=== PATIENT | male | born 1965 | race Caucasian/White ===

== ENCOUNTER 2020-10-23 09:08 | Outpatient (REF) | payer MEDICAID, SELFPAY ==
[2020-10-23 09:50] LABS: MANUAL DIFF FLAG NO
[2020-10-23 10:07] LABS: Basophils Percent Auto 0.5 % (0-2); Eosinophils Absolute Auto 0.1 X10*3/uL (0.0-0.4); Eosinophils Percent Auto 1.8 % (0-4); Hematocrit 46.5 % (42-52); Imm Gran Abs Auto 0.03 X10*3/uL (0.00-0.03); Imm Gran Pct Auto 0.5 % (0.0-0.4); Lymphocytes Absolute Auto 1.9 X10*3/uL (1.2-4.9); Lymphocytes Percent Auto 31.4 % (20-40); Mean Corpuscular HGB Conc 32.3 g/dl (31.0-36.0); Mean Corpuscular Hemoglobin 30.1 pg (27.0-33.0); Mean Corpuscular Volume 93.2 fL (80-98); Mean Platelet Volume 9.9 fL (9.4-12.4); Monocytes Absolute Auto 0.6 X10*3/uL (0.1-1.2); Monocytes Percent Auto 9.9 % (2-11); Neutrophils Absolute Auto 3.4 X10*3/uL (2.0-8.3); Neutrophils Percent Auto 55.9 % (45-73); Platelet Count 199 X10*3/uL (160-400); Red Blood Count 4.99 X10*6/uL (4.60-5.80); Red Cell Distribution Width 11.9 % (11.0-16.0); White Blood Count 6.1 X10*3/uL (4.8-10.8)
[2020-10-23 10:17] LABS: Alanine Aminotransferase 22 U/L (0-40); Albumin Level 4.3 g/dL (3.5-5.0); Alkaline Phosphatase 82 U/L (39-117); Anion Gap 10 (12-20); Aspartate Amino Transferase 17 U/L (5-37); Bilirubin Total 0.5 mg/dL (0.0-1.0); Blood Urea Nitrogen 13 mg/dL (9-16); Calcium 9.5 mg/dL (8.4-10.2); Carbon Dioxide 27 mmol/L (22-29); Chloride 108 mmol/L (96-108); Cholesterol 159 mg/dL; Estimated Glomerular Filt Rate > 60; Glucose Random 101 mg/dL (60-115); HDL Cholesterol 35 mg/dL; LDL Cholesterol Calculated 96 mg/dl; Potassium 4.1 mmol/L (3.3-5.1); Sodium 141 mmol/L (135-145); Total Protein 6.7 g/dL (6.5-8.0); Triglycerides 141 mg/dL
[2020-10-23 10:47] LABS: Glucose Urine UA NEG (NEG); Leukocyte Esterase Urine NEG (NEG); Nitrite Urine NEG (NEG); PH 5.5 (5.0-8.0); Specific Gravity - Urine >= 1.030 (1.005-1.025); Urine Blood NEG (NEG); Urine Ketones NEG (NEG); Urine Protein TRACE MG/DL (NEG-TRACE)
[2020-10-23 10:51] LABS: Appearance Urine HAZY; Color Urine YELLOW
[2020-10-23 11:04] LABS: Prostate Specific Antigen 1.62 ng/mL (<0.05-4.0)
== END 2020-10-23 09:09 | disposition home or self-care (01) ==
LOC: HO.LAB 09:08
PROVIDERS: PCP Internal Medicine; Visit Provider Internal Medicine
DX: I10 Essential (primary) hypertension (principal); E78.00 Pure hypercholesterolemia, unspecified; I25.10 Atherosclerotic heart disease of native coronary artery without angina pectoris; R35.1 Nocturia; Z12.5 Encounter for screening for malignant neoplasm of prostate
CPT/HCPCS: 36415; 80053; 80061; 81003; 84153; 85025

== ENCOUNTER 2021-10-09 09:43 | Outpatient (REF) | payer MEDICAID, SELFPAY ==
--- NOTE | ~2021-10-09 | XR_ITS ---
EXAMINATION: XR KNEE, LEFT CLINICAL INFORMATION: Left knee pain. Rule out ovary. COMPARISON: None TECHNIQUE: 4 views of the left knee. FINDINGS: There is severe degenerative varus deformity of left knee with severe loss of medial and moderate patellofemoral and lateral compartment joint space. There is moderate periarticular spurring lateral compartment. No acute fracture or dislocation seen. No lytic process. No abnormal joint effusion. XR/XR knee LT 4V IMPRESSION: Severe degenerative arthritic changes medial compartment and moderate arthritic changes patellofemoral compartment. There is genu varum deformity of the knee. No visible acute fracture or dislocation seen.
[2021-10-09 09:58] LABS: MANUAL DIFF FLAG NO
[2021-10-09 10:12] LABS: Basophils Percent Auto 0.3 % (0-2); Eosinophils Absolute Auto 0.1 X10*3/uL (0.0-0.4); Hematocrit 44.6 % (42.0-52.0); Hemoglobin 14.5 g/dl (14.0-18.0); Imm Gran Abs Auto 0.03 X10*3/uL (0.00-0.03); Imm Gran Pct Auto 0.5 % (0.0-0.4); Lymphocytes Absolute Auto 2.1 X10*3/uL (1.2-4.9); Lymphocytes Percent Auto 36.1 % (20-40); Mean Corpuscular HGB Conc 32.5 g/dl (31.0-36.0); Mean Corpuscular Hemoglobin 29.3 pg (27.0-33.0); Mean Corpuscular Volume 90.1 fL (80.0-98.0); Monocytes Absolute Auto 0.5 X10*3/uL (0.1-1.2); Monocytes Percent Auto 8.7 % (2-11); Neutrophils Absolute Auto 3.1 x10*3/uL (2.0-8.3); Neutrophils Percent Auto 53.4 % (45-73); Platelet Count 214 X10*3/uL (160-400); Red Blood Count 4.95 X10*6/uL (4.60-5.80); Red Cell Distribution Width 11.9 % (11.0-16.0); White Blood Count 5.7 X10*3/uL (4.8-10.8)
[2021-10-09 10:41] LABS: Alanine Aminotransferase 23 U/L (0-40); Albumin Level 4.1 g/dL (3.5-5.0); Alkaline Phosphatase 73 U/L (39-117); Anion Gap 11 (12-20); Aspartate Amino Transferase 16 U/L (5-37); Bilirubin Total 0.9 mg/dL (0.0-1.0); Blood Urea Nitrogen 13 mg/dL (9-16); Calcium 9.4 mg/dL (8.4-10.2); Carbon Dioxide 26 mmol/L (22-29); Chloride 108 mmol/L (96-108); Cholesterol 148 mg/dL; Estimated Glomerular Filt Rate > 60; Glucose Fasting 94 mg/dL (60-99); HDL Cholesterol 32 mg/dL; LDL Cholesterol Calculated 98 mg/dl; Potassium 4.1 mmol/L (3.3-5.1); Sodium 141 mmol/L (135-145); Total Protein 6.7 g/dL (6.5-8.0); Triglycerides 93 mg/dL
[2021-10-09 11:06] LABS: Prostate Specific Antigen 1.33 ng/mL (<0.05-4.0)
== END 2021-10-09 09:44 | disposition home or self-care (01) ==
LOC: HO.XRAY 09:43
PROVIDERS: PCP Internal Medicine; Visit Provider Internal Medicine
DX: Z12.5 Encounter for screening for malignant neoplasm of prostate (principal); M25.562 Pain in left knee; E78.00 Pure hypercholesterolemia, unspecified; I25.10 Atherosclerotic heart disease of native coronary artery without angina pectoris; I10 Essential (primary) hypertension
CPT/HCPCS: 36415; 73564; 80053; 80061; 84153; 85025

== ENCOUNTER 2024-05-31 10:48 | Outpatient (REF) | payer MEDICAID, SELFPAY ==
[2024-05-31 11:33] LABS: MANUAL DIFF FLAG NO
[2024-05-31 12:08] LABS: Basophils Absolute Auto 0.1 X10*3/uL (0.0-0.2); Basophils Percent Auto 0.9 % (0-2); Eosinophils Absolute Auto 0.1 X10*3/uL (0.0-0.4); Eosinophils Percent Auto 1.7 % (0-4); Hematocrit 49.1 % (42.0-52.0); Hemoglobin 16.4 g/dl (14.0-18.0); Imm Gran Abs Auto 0.02 X10*3/uL (0.00-0.03); Imm Gran Pct Auto 0.3 % (0.0-0.4); Lymphocytes Absolute Auto 2.1 X10*3/uL (1.2-4.9); Mean Corpuscular HGB Conc 33.4 g/dl (31.0-36.0); Mean Corpuscular Hemoglobin 29.8 pg (27.0-33.0); Mean Corpuscular Volume 89.3 fL (80.0-98.0); Mean Platelet Volume 9.2 fL (9.4-12.4); Monocytes Absolute Auto 0.7 X10*3/uL (0.1-1.2); Monocytes Percent Auto 10.1 % (2-11); Neutrophils Absolute Auto 3.5 x10*3/uL (2.0-8.3); Platelet Count 228 X10*3/uL (160-400); Red Cell Distribution Width 11.9 % (11.0-16.0); White Blood Count 6.5 X10*3/uL (4.8-10.8)
[2024-05-31 12:21] LABS: Appearance Urine Clear; Color Urine Yellow; Glucose Urine UA Negative (Negative); Leukocyte Esterase Urine Negative (Negative); Nitrite Urine Negative (Negative); Urine Blood Negative (Negative); Urine Ketones Negative (Negative); Urine Protein Negative (Neg-Trace)
[2024-05-31 12:52] LABS: Albumin Level 4.3 g/dL (3.5-5.0); Alkaline Phosphatase 76 U/L (39-117); Anion Gap 10 (12-20); Aspartate Amino Transferase 26 U/L (5-37); Bilirubin Total 0.6 mg/dL (0.0-1.0); Blood Urea Nitrogen 13 mg/dL (9-16); Calcium 9.3 mg/dL (8.4-10.2); Carbon Dioxide 25 mmol/L (22-29); Chloride 111 mmol/L (96-108); Cholesterol 162 mg/dL (<200); Estimated Glomerular Filt Rate > 60; Glucose Fasting 106 mg/dL (60-99); HDL Cholesterol 32 mg/dL (>40); LDL Cholesterol Calculated 99 mg/dL (<100); Potassium 4.4 mmol/L (3.3-5.1); Sodium 142 mmol/L (135-145); Total Protein 7.7 g/dL (6.5-8.0); Triglycerides 159 mg/dL (<150)
[2024-05-31 12:53] LABS: Prostate Specific Antigen 1.59 ng/mL (<0.05-4.0)
[2024-05-31 13:12] LABS: Alanine Aminotransferase 41 U/L (0-40)
[2024-05-31 13:18] LABS: Carcinoembryonic Antigen < 1.73 ng/mL
== END 2024-05-31 10:49 | disposition home or self-care (01) ==
LOC: HO.LAB 10:48
PROVIDERS: PCP Internal Medicine; Visit Provider Internal Medicine
DX: I10 Essential (primary) hypertension (principal); E78.00 Pure hypercholesterolemia, unspecified
CPT/HCPCS: 36415; 80053; 80061; 81003; 82378; 84153; 85025

== ENCOUNTER 2024-10-01 08:47 | Outpatient (AMB) | payer MEDICAID, SELFPAY ==
--- NOTE | 2024-10-01 08:51 | A.OFFVIS_ITS ---
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 Not much information is available. It seems that there is a history of hypertension, dyslipidemia and possibly coronary disease. Apparently, he was doing drugs in the past including cocaine. However, he states he has not done that in many decades. He believes he probably had heart attack related to drugs but again he cannot give any clear information. Within limits of his activity, no clear-cut symptoms like angina. It seems to be on medications for hypertension, dyslipidemia. [facility] Medical History (Updated 10/01/24 @ 09:14 by Kvng Andrews MD) Hyperlipidemia, unspecified Cocaine abuse in remission Primary hypertension Family History (Updated 10/01/24 @ 09:13 by Kvng Andrews MD) Mother Colon cancer Father Asthma Social History (Updated 10/01/24 @ 08:56 by [facility]) Household Members: Unknown / Unable to assess Alcohol intake: never Patient Tobacco Use Status: Never used Tobacco Review of Systems Const Denies chills, Denies fatigue, Denies fever(s), Denies frequent falls, Denies weakness, Denies weight gain and Denies weight loss ENT Denies dizziness Card Denies chest pain, Denies leg edema, Denies lightheadedness, Denies palpitations, Denies dyspnea, Denies dyspnea on exertion and Denies orthopnea Resp Denies cough, Denies dyspnea and Denies dyspnea on exertion GI Denies bloating and Denies change in bowel habits Musc Denies muscle weakness, Denies numbness and Denies tingling Neuro Denies dizziness, Denies frequent falls, Denies numbness, Denies tingling and Denies weakness Endo Denies fatigue and Denies palpitations Physical Exam Vital Signs: Last Vital Signs Pulse 79 10/01/24 08:53 BP 120/80 10/01/24 08:53 BMI result Body Mass Index 37.0 Const General: comfortable and no acute distress Orientation/consciousness: patient oriented x3 HEENT Other: Unremarkable Head: Yes normal to inspection Neck Neck: Yes normal visual inspection Chest Chest palpation & inspection: normal inspection of the chest Resp Auscultation: clear to auscultation bilaterally Cardio Palpation: normal PMI Heart sounds: S1 normal heart sound present, S2 normal heart sound present, no gallops, no murmurs and no rubs GI Palpation (GI): Soft to palpation Back/Spine/Pelvis Other: unremarkable Skin General skin exam: no rashes or lesions noted Neuro General: patient oriented x3 Extrem General: Yes normal to inspection Psych Mental Status: mental status grossly normal Office Procedures EKG Details: EKG with underlying sinus rhythm at 79/Min; cannot exclude old septal infarct; l ateral T inversions. Normal LA and corrected QT. No prior EKG for comparison. [id number], Complete Assessment & Plan Assessment & Plan (1) Abnormal EKG: Code(s): R94.31 - Abnormal electrocardiogram [ECG] [EKG] Category: Medical (2) Primary hypertension: Code(s): I10 - Essential (primary) hypertension Category: Medical (3) Hyperlipidemia, unspecified: Code(s): E78.5 - Hyperlipidemia, unspecified Category: Medical (4) Cocaine abuse in remission: Code(s): F14.11 - Cocaine abuse, in remission Category: Medical Plan Patient with many risk factors, no overt symptoms, abnormal EKG. Unclear coronary status. Obtain echocardiogram and stress test for further evaluation. Plan discussed with the patient he agrees. Continue current medications but I am not entirely clear why he is on dual antiplatelet therapy. Can await the above testing and then plan. Follow-up after the above. Discussion Notes During the visit, I discussed with the patient the importance of evaluating his current cardiac function considering the previous myocardial infarction and historical cocaine use. I recommended an echocardiogram and treadmill stress test to assess heart performance and potential ischemic changes. I explained the tests' benefits for monitoring cardiac health and risks like potential discomfort. The patient agreed and gave consent for the procedures. I emphasized maintaining medication adherence for hypertension and cholesterol. We reviewed anticipated results and agreed on discussing further steps once test outcomes are available. Patient was informed and verbally consented to the use of an ambient scribe for clinic note documentation during this visit. Orders: Orders CA echo transthoracic complete Today I25.10 - Atherosclerotic heart disease of [place] coronary artery without angina pectoris, R94.31 - Abnormal electrocar diogram [ECG] [EKG] CA stress test Today R07.2 - Precordial pain, R94.31 - Abnormal electrocardiogram [ECG] [EKG] NM cardiolite stress test Today R07.2 - Precordial pain, R94.31 - Abnormal electrocardiogram [ECG] [EKG] Patient Instructions: - Undergo the scheduled echocardiogram and treadmill stress test as discussed. - Continue taking your cholesterol and blood pressure medications as prescribed. - Maintain your current exercise routine but report any chest pain, pressure, or other concerning symptoms immediately. - Follow up after the tests to discuss results and any necessary changes in your treatment plan. - Call us if you experience any new or worsening symptoms. Coding Level of Care Code New Pt Level 4 (03324) Complex EM visit Add On G2211 Diagnoses Abnormal EKG R94.31 Primary hypertension I10 Hyperlipidemia, unspecified E78.5 Cocaine abuse in remission F14.11 CPT Codes EKG - CPT: 85121-[id number], Complete ([id number])
[2024-10-01 08:53] VITALS: BP 120/80; PULSE 79; BMI 37.0
--- OUTSIDE RECORDS SUMMARY | 2024-10-01 08:54 | XMS_ITS | Patient Health Record ---
Author Organization [facility] Address [address], [place] [id number] Care Team Providers Care Channeler Outsole Name Role Phone [facility], h Primary Care Provid er Unavailable [facility], [facility] Unavailable [phone] Reason For Referral No Information Problems Problem Type SNOMED Code ICD Code Onset Dates Problem Status W/U Status Risk Notes Problem Unsheltered homelessness ([id number] ) Unsheltered homelessness (Z59.02) Active confirmed Plan Of Treatment No Information Insurance Providers Payer Name Payer Address Payer Phone Subscriber Number Group Number Insured Name Patient Relationship to Insured Coverage Start Date Coverage End Date [place] Medicaid PCC [address] [place], [place] [id number] Torsten Dupree Self - patient is the insured 2
--- OUTSIDE RECORDS SUMMARY | 2024-10-01 08:54 | XMS_ITS | Clinical Summary ---
Author Organization [facility] Address [address] [address] [place] [address] Care Team Providers Care Rn Enterostomal Name Role Phone Unavailable Primary Care Provider Unavailabl e Encounters Date Type Department Care Team Description 09/10/2024 Population Health Risk Score [facility] (C3) Department [address] [facility] [address] [place] [address] Provider, Population Health Generic from Last 3 Months Social History Tobacco Use Types Packs/Day Years Used Date Smoking Tobacco: Never Assessed Sex and Gender Information Value Date Recorded Sex Assigned at Not on file Legal Sex Male 12:33 PM EDT Gender Identity Not on file Sexual Orientation Not on file Plan of Treatment Health Maintenance Due Date Last Done Comments CT Colonography 1967 Colonoscopy 1967 Colorectal Cancer Screening 1967 Depression Screening 1967 FIT DNA/Cologuard 1967 FIT 1967 FOBT 1967 HIV Screening 1967 Lipid Panel 1967 SDOH Screening 1967 Sigmoidoscopy 1967 Alcohol/Substance Use Screening 1979 Tobacco Screening 1979 Hepatitis C Screening 1985 DTaP/Tdap/Td Vaccines (1 - Tdap) 1986 Hepatitis B Vaccines (1 of 3 - 19+ 3-dose series) 1986 Pneumococcal Vaccine: 50+ Ye ars (1 of 1 - PCV) 2017 Zoster Vaccines (1 of 2) 2017 COVID-19 Vaccine (2023-2 5 season) 2024 Influenza Vaccine (#1) 2024 RSV Patients and Pa tients Aged 60 years or older (1 - 1-dose 75+ series) 2042 HIB Vaccines Aged Out No longer eligi ble based on patient's age to complete this topic HPV Vaccines Aged Out No longer eligi ble based on patient's age to complete this topic Hepatitis A Vaccines Aged Out No long er eligible based on patient's age to complete this topic IPV Vaccines Aged Out No longer eligi ble based on patient's age to complete this topic Meningococcal B Vaccine Aged Out No l onger eligible based on patient's age to complete this topic Meningococcal Vaccine Aged Out No sana jin eligible based on patient's age to complete this topic RSV under 20 months Aged Out No longe r eligible based on patient's age to complete this topic Rotavirus Vaccines Aged Out No longer eligible based on patient's age to complete this topic
== END 2024-10-01 09:18 | disposition home or self-care (01) ==
LOC: HO.HCS 08:48
PROVIDERS: PCP Internal Medicine; Visit Provider Internal Medicine
DX: R94.31 Abnormal electrocardiogram [ECG] [EKG] (principal); I10 Essential (primary) hypertension; E78.5 Hyperlipidemia, unspecified; F14.11 Cocaine abuse, in remission
CPT/HCPCS: 93010; 99204

== ENCOUNTER → 2024-10-01 08:47 | Outpatient (BNVA) | payer MEDICAID, SELFPAY | PROVIDERS: PCP Internal Medicine; Visit Provider Internal Medicine | DX: I10 Essential (primary) hypertension (principal); E78.5 Hyperlipidemia, unspecified; F14.11 Cocaine abuse, in remission | CPT/HCPCS: 93005; 99202 ==

== ENCOUNTER → 2024-11-30 12:47 | Outpatient (REF) | payer OTHER, SELFPAY ==
--- OUTSIDE RECORDS SUMMARY | 2024-11-30 12:49 | XMS_ITS | Patient Health Record ---
Author Organization [facility] Address [address] [place], [place] [id number] Care Team Providers Care Mapping Specialist Name Role Phone [facility], h Primary Care Provid er Unavailable [facility], [facility] Unavailable [phone] Reason For Referral No Information Problems Problem Type SNOMED Code ICD Code Onset Dates Problem Status W/U Status Risk Notes Problem Unsheltered homelessness ([id number] ) Unsheltered homelessness (Z59.02) Active confirmed Plan Of Treatment No Information Insurance Providers Payer Name Payer Address Payer Phone Subscriber Number Group Number Insured Name Patient Relationship to Insured Coverage Start Date Coverage End Date [place] Medicaid PCC [address] [place], [place] [id number] Torsten Dupree Self - patient is the insured 2
--- OUTSIDE RECORDS SUMMARY | 2024-11-30 12:49 | XMS_ITS | Clinical Summary ---
Author Organization [facility] Address [address] [place] [address] Phone Care Team Providers Care Insurance And Benefits Clerk Name Role Phone Roman Gerber MD Primary Care Provider Allergies No known active allergies Medications aspirin 325 MG tablet Take 325 mg by mouth daily. Active ibuprofen (ADVIL,MOTRIN) 600 MG tablet Take 1 tablet (600 mg total) by mouth every 6 (six) hours as needed for pain (specific location in comments). 28 tablet 12/06/2022 Active Active Problems No known active problems Social History Tobacco Use Types Packs/Day Years Used Date Smoking Tobacco: Never Smokeless Tobacco: Never Tobacco Cessation:Counseling Given: Not Answered Alcohol Use Standard Drinks/Week Comments Yes 0 (1 standard drink = 0.6 oz pur e alcohol) Education Answer Date Recorded Are you interested in more education? Not on rosalee e 12/06/2022 Are you concerned about learning? Not on file 12/06/2022 No 12/06/2022 No 12/06/2022 Digital Access Answer Date Recorded No 12/06/2022 No 12/06/2022 Reliable internet access at home? Not on file 12/06/2022 Device with a working camera? Not on file Sex and Gender Information Value Date Recorded Sex Assigned at Not on file Legal Sex Male 10:11 AM EDT Gender Identity Not on file Sexual Orientation Not on file Last Filed Vital Signs Vital Sign Reading Time Taken Comments Blood Pressure 138/94 06/21/2024 11:56 AM EST Pulse 74 06/21/2024 11:56 AM EST Temperature 36.7 C (98 F) 06/21/2024 11:56 AM EST Respiratory Rate 16 06/21/2024 11:56 AM EST Oxygen Saturation 97% 06/21/2024 11:56 AM EST Inhaled Oxygen Concentration - - Weight 91.2 kg (201 lb) 12/06/2022 10:39 AM EDT Height 165.1 cm (5' 5 ) 12/06/2022 10:39 AM EDT Body Mass Index 33.45 12/06/2022 10:39 AM EDT Plan of Treatment Health Maintenance Due Date Last Done Comments Adult Td,Tdap Booster 1967 LIPID PANEL 1967 DEPRESSION SCREENING 1979 HEPATITIS C SCREENING 1985 HIV ONE-TIME SCREENING (18-6 5 YEARS) 1985 SCREENING FOR DIABETES 2002 COLOGUARD 2012 COLONOSCOPY 2012 COLORECTAL CANCER SCREENING 2012 FIT TEST 2012 FOBT 2012 SIGMOIDOSCOPY 2012 VIRTUAL COLONOSCOPY 2012 PNEUMOCOCCAL VACCINES (50+ y ears) (1 of 1 - PCV) 2017 ZOSTER VACCINES (1 of 2) 2017 COVID-19 VACCINE (1 - 2023-2 5 season) 2024 SMOKING STATUS SCREENING (On ce After 26 Yrs) Completed 06/21/2024 HEPATITIS A VACCINES Aged Out No long er eligible based on patient's age to complete this topic HIB VACCINES Aged Out No longer eligi ble based on patient's age to complete this topic MENINGOCOCCAL VACCINES (ACWY) Aged Out No longer eligible based on patient's age to complete this topic MENINGOCOCCAL VACCINES (B) Aged Out N o longer eligible based on patient's age to complete this topic Medical Devices Not on file Insurance [facility] [place] [address] [place] [address] [place] [address] [place] [address] [facility] [place] [id number] Care Teams Insurance And Benefits Clerk Relationship Specialty Start Date End Date Roman Gerber MD [address] [place] [address] [place] [address] PCP - General 12/06/22 Additional Source Comments The information contained in this document represents components of the legal health record. It is not the complete legal health record.[facility]
--- NOTE | 2024-11-30 12:50 | CA_ITS ---
Transthoracic Echocardiogram Patient (Last, First, Middle): Torsten Dupree, Gender: Male Date of : 1965 Age: 59 Procedure Date: 11/30/2024 Procedure Type: Transthoracic Echocardiogram Location: OP Height: 165.1 cm Weight: 100.7 kg BSA: 2.07 m2 Heart Rate: 66 bpm BP: 120 / 80 mmHg Match Up Worker: SB Referring MD: Kvng Andrews MD Symptoms: I25.10 - Atherosclerotic heart disease of [place] coronary artery without... Study Quality: Adequate ECG Rhythm: Sinus with PVCs Conclusions: - The left ventricular systolic function is severely decreased. The visually estimated ejection fraction is between 25-30%. - The basal inferior and basal inferolateral segments are akinetic. - No obvious valvular pathology seen on this study. Findings Left Ventricle Moderately increased left ventricular cavity size. The left ventricular systolic function is severely decreased. The visually estimated ejection fraction is between 25-30%. There is severe global hypokinesis. Evidence suggests grade I (mild) diastolic dysfunction. LV peak GLS -14.1%. Wall Motion Rest Echo Findings The basal inferior and basal inferolateral segments are akinetic. Right Ventricle Normal right ventricular cavity size. There is low normal right ventricular systolic function. Atria Both atria are normal in size. Aortic Valve There is a normal trileaflet aortic valve. There is no aortic valve stenosis. There is no aortic valve regurgitation. Mitral Valve The mitral valve appears normal. There is no mitral valve regurgitation. There is no mitral valve stenosis. Pulmonic Valve The pulmonic valve is likely normal. Tricuspid Valve Normal tricuspid valve structure. There is no tricuspid valve regurgitation. Tricuspid regurgitation envelope is inadequate for calculation of right ventricular systolic pressure. Great Vessels The asc aorta is normal in size. Venous The inferior vena cava is normal in size and collapses greater than 50% with inspiration. Pericardium/Pleural There is no evidence of pericardial effusion. Prior Study Comparison No prior study available for comparison. Recommendations, Care & Conclusions No obvious valvular pathology seen on this study. Measurements 2D Linear Measurements IVSd: 0.99 0.6-0.9/0.6-1.0 cm LVIDd: 6.36 3.9-5.3/4.2-5.9 cm LVIDd Index: 3.07 2.4-3.2/2.2-3.1 cm/m2 LVIDs: 5.57 2.0-3.6 cm LVPWd: 0.94 0.7-1.1 cm LA Diam: 4.40 2.7-3.8/3.0-4.0 cm LAIDs Index: 2.13 1.5-2.3 cm/m2 LV Mass: 324.53 67-162/88-224 g LV Mass Index: 156.78 43-95/49-115 g/m2 LVOT Diam: 2.60 3.0+(-)1.3 cm 2D Systolic Function EF 4C: 35.10 >55% EF 2C: 28.40 >55% EF BiP: 30.00 >55% Mitral Valve MV Pk E: 0.56 MV PK A: 0.80 MV Decel Time: 252.00 E/A: 0.70 E'Lateral: 5.55 E'Medial: 4.24 E/E' Med: 13.20 E/E' Lat: 10.10 PHT: 74.00 MVA PHT: 2.97 Decel [place]: 2.23 Aortic Valve AoV Pk Abbe: 1.07 AoV Pk Grad: 5.00 LISBET: 3.94 LVOT LVOT Pk Abbe: 0.68 LVOT Mn Abbe: 0.54 LVOT VTI: 0.14 LVOT Pk Grad: 2.00 LVOT Mn Grad: 1.00 LVOT Diam: 2.60 LVOT Area: 5.31 Diastolic Function MV Pk E: 0.56 MV Pk A: 0.80 E/A: 0.70 E'Medial: 4.24 E/E' Med: 13.20 E' Laterial: 5.55 E/E' Lat: 10.10 Right Ventricle TAPSE (mm): 17.80 TVS' Abbe: 9.90 Tricuspid Valve RA Press: 3.00 Great Vessels Aorta Sinus of Valsalva: 3.80 2.0-3.5 cm Ao Asc: 3.60 2.1-3.4 cm Pulmonary Valve PV Pk Abbe: 1.18 Peak PV Grad: 6.00 Updated in Other Vendor System with Status of Final Kvng Andrews MD electronically signed on 12/01/2024 12:57:14 PM with status of Final
== END ==
LOC: HO.CARD 12:47
PROVIDERS: Visit Provider Internal Medicine
DX: I25.10 Atherosclerotic heart disease of native coronary artery without angina pectoris (principal); R94.31 Abnormal electrocardiogram [ECG] [EKG]
CPT/HCPCS: 93306

== ENCOUNTER → 2024-11-30 12:50 | Outpatient (BNV) | payer OTHER, SELFPAY | PROVIDERS: Visit Provider Internal Medicine | DX: I50.9 Heart failure, unspecified (principal) | CPT/HCPCS: 93306; 93356 ==

== ENCOUNTER 2024-12-07 13:08 | Outpatient (AMB) | payer OTHER, SELFPAY ==
--- OUTSIDE RECORDS SUMMARY | 2024-12-07 13:11 | XMS_ITS | Clinical Summary ---
Author Organization [facility] Address [address] [place] [address] Phone Care Team Providers Care Youth Pastor Name Role Phone Roman Gerber MD Primary [...] topic Medical Devices Not on file Insurance [facility] [place] [address] [place] [address] [place] [address] [place] [address] [facility] [place] [id number] Care Teams Youth Pastor Relationship Specialty Start Date End Date Roman Gerber MD [address] [place] [address] [place] [address] PCP - General 12/06/22 Additional Source Comments The information contained in this document represents components of the legal health record. It is not the complete legal health record.[facility]
--- OUTSIDE RECORDS SUMMARY | 2024-12-07 13:11 | XMS_ITS | Patient Health Record ---
Author Organization [facility] Address [address], [place] [id number] Care Team Providers Care Manual Arts Teacher Name Role Phone [employer] - DO NOT USE, h Ke [facility] Primary Care Provider Unavailable [facility] Unavailable [phone] Reason For Referral No Information Problems Problem Type SNOMED Code ICD Code Onset Dates Problem Status W/U Status Risk Notes Problem Unsheltered homelessness ([id number] ) Unsheltered homelessness (Z59.02) Active confirmed Plan Of Treatment No Information Insurance Providers Payer Name Payer Address Payer Phone Subscriber Number Group Number Insured Name Patient Relationship to Insured Coverage Start Date Coverage End Date [place] Medicaid PCC [address] [place], [place] [id number] Torsten Dupree Self - patient is the insured 2
--- OUTSIDE RECORDS SUMMARY | 2024-12-07 13:11 | XMS_ITS | Clinical Summary ---
Author Organization [facility] Address [address] [facility] [place] [address] Care Team Providers Care Iron Molder Helper Name Role Phone Unavailable Primary Care Provider Unavailabl e Encounters Date Type Department Care Team Description 09/10/20[address] Score [facility] (C3) Department [address] [facility] [address] [place] [address] Provider, Population Health Generic from [...] Panel 1967 SDOH Screening 1967 Sigmoidoscopy 1967 Disability Screening 1967 Alcohol/Substance Use Screening 1979 Tobacco Screening 1979 Hepatitis C Screening 1985 DTaP/Tdap/Td Vaccines (1 - Tdap) 1986 Hepatitis B Vaccines (1 of 3 - 19+ 3-dose series) 1986 Pneumococcal Vaccine: 50+ Ye ars (1 of 1 - PCV) 2017 Zoster Vaccines (1 of 2) 2017 COVID-19 Vaccine ( - 2023-2 5 season) 2024 Influenza Vaccine (#1) 2025 RSV Patients and Pa tients Aged 60 [...]
[2024-12-07 13:32] VITALS: BP 130/80; PULSE 76; BMI 35.9
--- NOTE | 2024-12-07 13:32 | A.OFFVIS_ITS ---
Vital Signs 12/07/24 13:32 Height 5 ft 5 in Weight 216 lb 0.848 oz BMI 35.9 BP 130/80 Blood Pressure Location Lt brachial Position Sitting Pulse 76 Intake Visit Reasons: f/up pt request Intake Note: Follow-up per patient request would like to know more about the testing and why its needed Traffic Engineering Technician Required: No Allergies No Known Allergies Allergy (Verified 10/01/24 08:53) Medication List - Last Reconciled 12/07/24 by Abilio Berman NP aspirin 81 mg PO DAILY atorvastatin 40 mg PO DAILY clopidogrel 75 mg PO DAILY lisinopril 40 mg PO DAILY nifedipine ER 30 mg PO DAILY HPI Comments Details: This is a 59-year-old male patient coming in for a follow-up visit. Patient with a history of hypertension, and hyperlipidemia. Patient states that about 25-30 years ago patient may have had a heart attack due to his substance abuse and he was placed on aspirin and Plavix for that matter. Patient states a he does not remember having a cardiac catheterization for this matter. Anyhow, patient was recently seen for consultation of coronary artery disease and subsequently underwent an echo study that showed a reduced LV systolic function with an ejection fraction between 25-30% with wall motion abnormalities. Today, patient is here to discuss the result and further testings. Patient continues to deny any anginal symptoms of exertional chest pain, shortness breath, palpitations, dizziness, orthopnea, PND, leg edema, presyncope, or syncope. Patient notes that he is compliant with all his medications and has not used any drugs with a past 20 years. [facility] Medical History Hyperlipidemia, unspecified Cocaine abuse in remission Primary hypertension Family History Mother Colon cancer Father Asthma Social History Household Members: Unknown / Unable to assess Alcohol intake: never Patient Tobacco Use Status: Never used Tobacco Review of Systems Const Denies chills, Denies fatigue, Denies fever(s), Denies frequent falls, Denies weakness, Denies weight gain and Denies weight loss ENT Denies dizziness Card Denies chest pain, Denies leg edema, Denies lightheadedness, Denies palpitations, Denies dyspnea, Denies dyspnea on exertion, Denies orthopnea and Denies other (loss of consciousness) Resp Denies cough, Denies dyspnea and Denies dyspnea on exertion GI Denies hematochezia and Denies change in stool character Musc Denies abnormal gait, Denies muscle weakness, Denies numbness, Denies radiating pain into limb and Denies tingling Neuro Denies abnormal gait, Denies dizziness, Denies frequent falls, Denies numbness, Denies tingling and Denies weakness Endo Denies fatigue and Denies palpitations Physical Exam Vital Signs: Last Vital Signs Pulse 76 12/07/24 13:32 BP 130/80 12/07/24 13:32 BMI result Body Mass Index 35.9 Const General: cooperative, healthy appearing, comfortable and no acute distress Orientation/consciousness: patient oriented x3 HEENT Head: Yes normal to inspection Neck Neck: Yes normal visual inspection, Yes trachea midline and Yes supple Chest Chest palpation & inspection: normal inspection of the chest Resp Effort & Inspection: normal respiratory effort Auscultation: clear to auscultation bilaterally, no crackles, no rales, no rhonchi and no wheezes Cardio Jugular venous distension: no JVD Palpation: normal PMI Rate: regular rate Rhythm: regular rhythm Heart sounds: S1 normal heart sound present, S2 normal heart sound present, no click, no gallops, no murmurs and no rubs Peripheral pulses: Peripheral pulses 2+ throughout GI Inspection: Yes normal to inspection Palpation (GI): Soft to palpation Auscultation: normal bowel sounds Skin General skin exam: no rashes or lesions noted Neuro General: patient oriented x3 Extrem General: Yes normal to inspection, No no pedal edema and No calf tenderness Psych Appearance: grossly normal Mental Status: mental status grossly normal Speech and movement: Normal speech and movement present Assessment & Plan Assessment & Plan (1) Cardiomyopathy: Code(s): I42.9 - Cardiomyopathy, unspecified Category: Medical (2) Primary hypertension: Code(s): I10 - Essential (primary) hypertension Category: Medical (3) Hyperlipidemia, unspecified: Code(s): E78.5 - Hyperlipidemia, unspecified Category: Medical Plan 11/30/2024-echo study showed a severely decreased ejection fraction between 25- 30%, with akinetic basal inferior and basal inferolateral segments. Given above finding, we will proceed with a cardiac catheterization to further assess the coronary arteries and evaluate the extent of ischemic changes. The procedure along with its indications, risks, and potential benefits was thoroughly discussed with the patient. The patient was performed about potentially for a stent placement. The patient expresses understanding and agrees to proceed with the planned cardiac catheterization. Continue with aspirin, Plavix, and statin therapy. Ideally, LDL goal less than 70. Blood pressure is well-controlled. Continue current regimen with a blood pressure goal less than 130/80. Advised monitoring blood pressure at home and maintaining a log. Advised heart healthy diet, med compliance, continuing to avoid stimulants, and aggressive management of vascular risk factors. Follow-up after cardiac catheterization. In the interim, patient will call the office with any concerns or change in symptoms. Advised to seek ER care in case of exertional chest pain not resolved with rest. This note was generated using voice recognition software. While every effort has been made to ensure accuracy and proper machine load clerk, there may be occasional errors that could affect the content or meaning of the described symptoms. Orders: Orders Complete Blood Count no Diff Today I42.9 - Cardiomyopathy, unspecified Prothrombin Time INR Today I42.9 - Cardiomyopathy, unspecified Basic Metabolic Panel Today I42.9 - Cardiomyopathy, unspecified Cardiac Cath LT w PCI Today I42.9 - Cardiomyopathy, unspecified Coding Level of Care Code Est Pt Level 4 (16425) Complex EM visit Add On G2211 Diagnoses Cardiomyopathy I42.9 Primary hypertension I10 Hyperlipidemia, unspecified E78.5 Time Spent (min) 31 Comment Time spent in reviewing the chart, test results, assessment, counseling and documentation.
== END 2024-12-07 14:13 | disposition home or self-care (01) ==
LOC: HO.HCS 13:09
DX: I42.9 Cardiomyopathy, unspecified (principal); I10 Essential (primary) hypertension; E78.5 Hyperlipidemia, unspecified
CPT/HCPCS: 99214; G2211

== ENCOUNTER → 2024-12-07 13:08 | Outpatient (BNVA) | payer OTHER, SELFPAY | DX: I42.9 Cardiomyopathy, unspecified (principal); I10 Essential (primary) hypertension; E78.5 Hyperlipidemia, unspecified | CPT/HCPCS: 99212 ==

== ENCOUNTER 2025-01-05 09:46 | Outpatient (REF) | payer OTHER, SELFPAY ==
[2025-01-05 10:52] LABS: Hematocrit 46.5 % (42.0-52.0); Hemoglobin 16.4 g/dl (14.0-18.0); Mean Corpuscular HGB Conc 35.3 g/dl (31.0-36.0); Mean Corpuscular Hemoglobin 30.3 pg (27.0-33.0); Mean Corpuscular Volume 86.0 fL (80.0-98.0); NRBC Abs Auto 0.000 X10*3/uL (0.0-0.012); NRBC Pct Auto 0.0 /100WBC (0.0-0.2); Platelet Count 230 X10*3/uL (160-400); Red Blood Count 5.41 X10*6/uL (4.60-5.80); White Blood Count 6.6 X10*3/uL (4.8-10.8)
[2025-01-05 10:56] LABS: INTERNATIONAL NORM RATIO 1.0 (0.9-1.1); Prothrombin Time 11.7 SEC (10.9-12.4)
[2025-01-05 11:33] LABS: Anion Gap 12 (12-20); Blood Urea Nitrogen 14 mg/dL (9-16); Calcium 9.2 mg/dL (8.4-10.2); Carbon Dioxide 23 mmol/L (22-29); Chloride 110 mmol/L (96-108); Cholesterol 148 mg/dL (<200); Estimated Glomerular Filt Rate > 60; Potassium 4.1 mmol/L (3.3-5.1); Sodium 141 mmol/L (135-145); Triglycerides 85 mg/dL (<150)
[2025-01-05 12:14] LABS: HDL Cholesterol 34 mg/dL (>40)
== END 2025-01-05 09:47 | disposition home or self-care (01) ==
LOC: HO.LAB 09:46
DX: I42.9 Cardiomyopathy, unspecified (principal); E78.5 Hyperlipidemia, unspecified
CPT/HCPCS: 36415; 80048; 80061; 85027; 85610

== ENCOUNTER 2025-03-12 16:11 | Outpatient (REF) | payer OTHER, SELFPAY ==
[2025-03-12 18:25] LABS: INTERNATIONAL NORM RATIO 1.1 (0.9-1.1); Prothrombin Time 12.1 SEC (10.9-12.4)
[2025-03-12 18:40] LABS: Anion Gap 12 (12-20); Blood Urea Nitrogen 16 mg/dL (9-16); Calcium 9.5 mg/dL (8.4-10.2); Carbon Dioxide 27 mmol/L (22-29); Chloride 109 mmol/L (96-108); Cholesterol 139 mg/dL (<200); Estimated Glomerular Filt Rate > 60; HDL Cholesterol 34 mg/dL (>40); Potassium 3.9 mmol/L (3.3-5.1); Sodium 144 mmol/L (135-145); Triglycerides 105 mg/dL (<150)
[2025-03-12 19:03] LABS: Hematocrit 49.0 % (42.0-52.0); Hemoglobin 16.0 g/dl (14.0-18.0); Mean Corpuscular HGB Conc 32.7 g/dl (31.0-36.0); Mean Corpuscular Hemoglobin 29.6 pg (27.0-33.0); Mean Corpuscular Volume 90.6 fL (80.0-98.0); NRBC Abs Auto 0.000 X10*3/uL (0.0-0.012); NRBC Pct Auto 0.0 /100WBC (0.0-0.2); Platelet Count 248 X10*3/uL (160-400); Red Blood Count 5.41 X10*6/uL (4.60-5.80); White Blood Count 6.6 X10*3/uL (4.8-10.8)
--- OUTSIDE RECORDS SUMMARY | 2025-03-12 20:08 | XMS_ITS | Clinical Summary ---
Author Organization [facility] Address [address] [place] [address] Phone Care Team Providers Care Charge Account Clerk Name Role Phone Roman Gerber MD [...] 2017 ZOSTER VACCINES (1 of 2) 2017 INFLUENZA VACCINE (#1) 2024 COVID-19 VACCINE (1 - 2024-2 6 season) 2025 RSV VACCINE (1 - 1-dose 75+ series) 2042 SMOKING STATUS SCREENING (On ce After 26 [...] topic Medical Devices Not on [place] [address] [facility] [place] [address] [facility] [phone] [facility] Care Teams Charge Account Clerk Relationship Specialty Start Date End Date Roman Gerber MD [address] [place] [address] [place] [address] PCP - General 12/06/22 Additional Source Comments The information contained in this document represents components of the legal health record. It is not the complete legal health record.[facility]
--- OUTSIDE RECORDS SUMMARY | 2025-03-12 20:08 | XMS_ITS | Patient Health Record ---
Author Organization [facility] Address [address] [place] [address] Care Team Providers Care Bulk Tank Car Unloader Name Role Phone [employer] - DO NOT USE, h Ke martinez Internal Medicine Primary Care Provider Unavailable [facility] Unavailable [phone] Reason For Referral No Information Problems Problem Type SNOMED Code ICD Code Onset Dates Problem Status W/U Status Risk Notes Problem Unsheltered homelessness ([id number] ) Unsheltered homelessness (Z59.02) Active confirmed Plan Of Treatment No Information Insurance Providers Payer Name Payer Address Payer Phone Subscriber Number Group Number Insured Name Patient Relationship to Insured Coverage Start Date Coverage End Date [place] Medicaid PCC [address] [place], [place] [id number] Torsten Dupree Self - patient is the insured 2
--- OUTSIDE RECORDS SUMMARY | 2025-03-12 20:08 | XMS_ITS | Clinical Summary ---
Author Organization [facility] Address [address] [place] [address] Care Team Providers Care Teacher Of The Deaf/Hard Of Hearing Name Role Phone Unavailable Primary Care Provider Unavailabl e Social History Tobacco Use Types Packs/Day Years [...] Vaccines (1 of 2) 2017 COVID-19 Vaccine (1 - 2023-2 5 season) 2025 Influenza Vaccine (#1) 2025 RSV Patients and [...]
== END 2025-03-12 16:12 | disposition home or self-care (01) ==
LOC: HO.LAB 16:11
DX: I42.9 Cardiomyopathy, unspecified (principal); E78.5 Hyperlipidemia, unspecified
CPT/HCPCS: 36415; 80048; 80061; 85027; 85610

== ENCOUNTER → 2025-03-15 23:59 | Outpatient (BNV) | payer OTHER, SELFPAY | PROVIDERS: Visit Provider Internal Medicine Cardiovascular Disease | DX: I42.8 Other cardiomyopathies (principal) | CPT/HCPCS: 93458; 93571; 99152 ==

== ENCOUNTER 2025-03-29 15:25 | Outpatient (AMB) | payer OTHER, SELFPAY ==
[2025-03-29 15:26] VITALS: BP 120/72; PULSE 84; BMI 36.2
--- NOTE | 2025-03-29 15:26 | A.OFFVIS_ITS ---
Vital Signs 03/29/25 15:26 Height 5 ft 5 in Weight 217 lb 13.067 oz BMI 36.2 BP 120/72 Blood Pressure Location Lt brachial Position Sitting Pulse 84 Pulse Source Pulse Oximeter Intake Visit Reasons: Follow up post cardiac cath Octave Board Assembler Required: No Accompanied by: Self / Same As Patient Allergies No Known Allergies Allergy (Verified 03/29/25 15:29) Medication List - Last Reconciled 03/29/25 by Abilio Berman NP aspirin 81 mg PO DAILY atorvastatin 80 mg PO DAILY clopidogrel 75 mg PO DAILY lisinopril 40 mg PO DAILY nifedipine ER 30 mg PO DAILY HPI Comments Details: This is a 59-year-old male patient coming in for a follow-up visit status post cardiac catheterization. Patient with a history of hypertension, hyperlipidemia and reports of a heart attack due to substance abuse about 30 years ago. Patient was seen in the office for consultation of coronary artery disease. Patient underwent a an echo study that showed decreased EF between 25-30% with wall motion abnormalities and is now status post cardiac catheterization. Today, patient is reporting feeling well overall without any cardiac symptoms of exertional chest pain, shortness breath, palpitations, dizziness, orthopnea, PND, leg edema, presyncope, or syncope. Patient is reporting compliance with all his medications. Patient reports quitting substance use about 20 years ago. [facility] Medical History Hyperlipidemia, unspecified Cocaine abuse in remission Primary hypertension Surgical History Hx of cardiac cath Family History Mother Colon cancer Father Asthma Social History Household Members: Unknown / Unable to assess Alcohol intake: never Patient Tobacco Use Status: Never used Tobacco Review of Systems Const Denies daytime sleepiness, Denies difficulty sleeping, Denies snoring, Denies stops breathing during sleep and Denies weakness Card Denies chest pain, Denies rapid heart rate, Denies irregular heart rhythm, Denies claudication, Denies leg edema, Denies lightheadedness, Denies palpitations, Denies dyspnea, Denies dyspnea on exertion, Denies orthopnea, Denies paroxysmal nocturnal dyspnea and Denies slow heart rate Resp Denies cough, Denies dyspnea, Denies dyspnea on exertion and Denies snoring GI Reports no additional complaints, Denies hematochezia, Denies change in stool character and Denies dyspepsia Musc Denies abnormal gait, Denies muscle weakness and Denies numbness Neuro Denies abnormal gait, Denies numbness and Denies weakness Endo Denies palpitations Physical Exam Vital Signs: Last Vital Signs Pulse 84 03/29/25 15:26 BP 120/72 03/29/25 15:26 BMI result Body Mass Index 36.2 Const General: cooperative, healthy appearing, comfortable and no acute distress Orientation/consciousness: patient oriented x3 HEENT Head: Yes normal to inspection Neck Neck: Yes normal visual inspection, Yes trachea midline and Yes supple Chest Chest palpation & inspection: normal inspection of the chest Resp Effort & Inspection: normal respiratory effort Auscultation: clear to auscultation bilaterally, no crackles, no rales, no rhonchi and no wheezes Cardio Jugular venous distension: no JVD Palpation: normal PMI Rate: regular rate Rhythm: regular rhythm Heart sounds: S1 normal heart sound present, S2 normal heart sound present, no click, no gallops, no murmurs and no rubs Peripheral pulses: Peripheral pulses 2+ throughout GI Inspection: Yes normal to inspection Palpation (GI): Soft to palpation Auscultation: normal bowel sounds Skin General skin exam: no rashes or lesions noted Neuro General: patient oriented x3 Extrem General: Yes normal to inspection, No no pedal edema and No calf tenderness Psych Appearance: grossly normal Mental Status: mental status grossly normal Speech and movement: Normal speech and movement present Assessment & Plan Assessment & Plan (1) Coronary artery disease: Code(s): I25.10 - Atherosclerotic heart disease of [place] coronary artery without angina pectoris Category: Medical Plan: 11/30/2024-echo study showed severely decreased EF between 25-30% with akinetic basal inferior and basal inferolateral segments. 03/15/2025-patient underwent a cardiac catheterization with Dr. Villaseñor that showed mid RCA with 70% stenosis, right posterolateral branch with 70% stenosis, OM1 with 80% stenosis, and diffuse 70% stenosis and proximal to mid LAD, and 70% stenosis in the ostial diagonal. IFR LAD was abnormal at 0.8. Right wrist catheterization site is well healed. Patient was referred out to cardiac surgery for CABG assessment. Apparently patient was supposed to see them today but has missed his appointment and is going to reschedule this. Continue aspirin and Plavix therapy. Continue high-dose statin therapy. Continue with lisinopril. We will change his nifedipine to metoprolol and add Jardiance to his regimen. Benefits of neurohormonal modulatory drugs was reviewed with the patient. We will slowly titrate this. We will monitor his labs. Advised on med compliance. Plan to follow up after CABG. (2) Status post cardiac catheterization: Code(s): Z98.890 - Other specified postprocedural states Category: Surgical Plan: As above. (3) Cardiomyopathy: Code(s): I42.9 - Cardiomyopathy, unspecified Category: Medical Plan: As above. (4) Primary hypertension: Code(s): I10 - Essential (primary) hypertension Category: Medical Plan: Blood pressure today is well-controlled. Stay on the regimen provided today. Ideally, blood pressure goal less than 130/80. Advised to monitor blood pressures at home. Advised on low-salt diet. (5) Hyperlipidemia, unspecified: Code(s): E78.5 - Hyperlipidemia, unspecified Category: Medical Plan: Most recent LDL at 84. Ideally goal should be less than 70. We will add Zetia to his regimen. Follow up after CABG. In the interim, patient will call the office with any concerns or change in symptoms. Patient missed his CABG consultation today due to conflict in appointments and I spoke with the part time receptionist who states that they will call the patient again to reschedule that visit. Patient verbalized understanding of the plan. This note was generated using voice recognition software. While every effort has been made to ensure accuracy and proper glue maker, there may be occasional errors that could affect the content or meaning of the described symptoms. Plan 11/30/2024-echo study showed a severely decreased ejection fraction between 25- 30%, with akinetic basal inferior and basal inferolateral segments. Given above finding, we will proceed with a cardiac catheterization to further assess the coronary arteries and evaluate the extent of ischemic changes. The procedure along with its indications, risks, and potential benefits was thoroughly discussed with the patient. The patient was performed about potentially for a stent placement. The patient expresses understanding and agrees to proceed with the planned cardiac catheterization. Continue with aspirin, Plavix, and statin therapy. Ideally, LDL goal less than 70. Blood pressure is well-controlled. Continue current regimen with a blood pressure goal less than 130/80. Advised monitoring blood pressure at home and maintaining a log. Advised heart healthy diet, med compliance, continuing to avoid stimulants, and aggressive management of vascular risk factors. Follow-up after cardiac catheterization. In the interim, patient will call the office with any concerns or change in symptoms. Advised to seek ER care in case of exertional chest pain not resolved with rest. This note was generated using voice recognition software. While every effort has been made to ensure accuracy and proper glue maker, there may be occasional errors that could affect the content or meaning of the described symptoms. Medications: New metoprolol succinate ER 25 mg PO DAILY 90 tabs 3RF empagliflozin (Jardiance) 10 mg PO DAILY 90 tabs 3RF ezetimibe 10 mg PO DAILY 90 tabs 3RF Coding Level of Care Code Est Pt Level 4 (67538) Complex EM visit Add On G2211 Diagnoses Coronary artery disease I25.10 Status post cardiac catheterization Z98.890 Cardiomyopathy I42.9 Primary hypertension I10 Hyperlipidemia, unspecified E78.5 Time Spent (min) 32 Comment Time spent in reviewing the chart, test results, assessment, counseling and documentation.
--- OUTSIDE RECORDS SUMMARY | 2025-03-30 00:21 | XMS_ITS | Clinical Summary ---
Author Organization [facility] Address [address] [place] [address] Phone Care Team Providers Care Director Safety Name Role Phone Roman Gerber MD Primary [...] patient's age to complete this topic IPV VACCINES Aged Out No longer eligi ble based on patient's age to complete this topic MENINGOCOCCAL VACCINES (ACWY) Aged Out No longer eligible based on patient's age to complete this topic MENINGOCOCCAL VACCINES (B) Aged Out N o longer eligible based on patient's age to complete this topic Medical Devices Not on file Insurance [facility] [place] [address] [place] [address] [place] [address] [facility] [place] [facility] P[facility] Care Teams Director Safety Relationship Specialty Start Date End Date Roman Gerber MD [address] [place] [address] [place] [address] PCP - General 12/06/22 Additional Source Comments The information contained in this document represents components of the legal health record. It is not the complete legal health record.[facility]
== END 2025-03-29 15:42 | disposition home or self-care (01) ==
LOC: HO.HCS 15:25
PROVIDERS: PCP Internal Medicine
DX: I25.10 Atherosclerotic heart disease of native coronary artery without angina pectoris (principal); Z98.890 Other specified postprocedural states; I42.9 Cardiomyopathy, unspecified; I10 Essential (primary) hypertension; E78.5 Hyperlipidemia, unspecified
CPT/HCPCS: 99214

== ENCOUNTER → 2025-03-29 15:25 | Outpatient (BNVA) | payer OTHER, SELFPAY | PROVIDERS: PCP Internal Medicine | DX: I25.10 Atherosclerotic heart disease of native coronary artery without angina pectoris (principal); I10 Essential (primary) hypertension; E78.5 Hyperlipidemia, unspecified; I42.9 Cardiomyopathy, unspecified | CPT/HCPCS: 99212 ==